=== PATIENT | male | born 1990 | race Caucasian/White ===

== ENCOUNTER 2016-09-26 20:54 | Emergency (ER) | payer BC, OTHER ==
[2016-09-26 21:00] VITALS: BP 142/87; PULSE 75; TEMP 98.2; BMI 27.8
--- NOTE | 2016-09-26 22:10 | PDOC ---
History of Present Illness - History of Present Illness Initial Comments: 09/26/16 22:19 The patient is a 26 year old male with no significant past medical history who presents to the emergency department with complaints of sore throat and cough since Wednesday. Pt also reports minimal dizziness. Pt states that he had pizza today. Pt works in [employer]. Pt denies fever, chills, abdominal pain, nausea, vomiting, diarrhea, chest pain , SOB, headache. (-) sick contact <Mariela Pizarro - Last Filed: 09/26/16 22:19> <Angella Burnett - Last Filed: 09/28/16 01:05> - General Chief Complaint: Sore Throat Stated Complaint: SORE THROAT Time Seen by Provider: 09/26/16 22:09 Past History <Mariela Pizarro - Last Filed: 09/26/16 22:19> - Past Medical History Other medical history: denies - Psycho/Social/Smoking Cessation Hx Anxiety: No Suicidal Ideation: No Smoking History: Never smoked Number of Cigarettes Smoked Daily: 1 Hx Alcohol Use: Yes (SOCIAL) Substance Use Type: None <Angella Burnett - Last Filed: 09/28/16 01:05> - Past Medical History Allergies/Adverse Reactions: Allergies Allergy/AdvReac Type Severity Reaction Status Date / Time No Known Allergies Allergy Verified 09/26/16 21:00 Home Medications: Ambulatory Orders Azithromycin [Zithromax -] 250 mg PO UTDICT #4 tab 09/26/16 Review of Systems - Review of Systems Able to Perform ROS?: Yes Comments:: 09/26/16 22:23 GENERAL/CONSTITUTIONAL: No: fever, chills, weakness, loss of appetite. HEAD, EYES, EARS, NOSE AND THROAT: Yes: sore throat No: change in vision, ear pain, discharge, throat swelling. CARDIOVASCULAR: No: chest pain, palpitations, syncope RESPIRATORY: Yes: cough No: shortness of breath, wheezing, hemoptysis, stridor. GASTROINTESTINAL: No: nausea, vomiting, abdominal cramping, diarrhea, rectal bleeding, constipation. GENITOURINARY: No: dysuria, hematuria, frequency, urgency, flank pain. MUSCULOSKELETAL: No: back pain, neck pain, joint pain, muscle swelling or pain SKIN AND BREASTS: No: lesions, pallor, rash or easy bruising. NEUROLOGIC: Yes : minimal dizziness No: headache, vertigo, paresthesias, weakness ENDOCRINE: No: unexplained weight gain or loss HEMATOLOGIC/LYMPHATIC: No: anemia, easy bleeding, swelling nodes All Other Systems: Reviewed and Negative <Aura Pizarroin - Last Filed: 09/26/16 22:19> *Physical Exam - Vital Signs Last Vital Signs Temp Pulse Resp BP Pulse Ox 98.2 F 75 18 142/87 99 09/26/16 20:56 09/26/16 20:56 09/26/16 20:56 09/26/16 20:56 09/26/16 20:56 - Physical Exam Comments: 09/26/16 22:24 GENERAL: The patient is in no acute distress. HEAD: Normal with no signs of trauma. EYES: PERRLA, EOMI, sclera anicteric, conjunctiva clear. ENT: Ears normal, nares patent, oropharynx clear without exudates. Moist mucous membranes. NECK: Normal range of motion, supple without lymphadenopathy, JVD, or masses. LUNGS: + coarse breath sound at left base. No wheezes, and no crackles. HEART:Regular rate and rhythm, normal S1 and S2 without murmur, rub or gallop. ABDOMEN: Soft, nontender, normoactive bowel sounds. No guarding, no rebound. EXTREMITIES: Normal range of motion, no edema. No clubbing or cyanosis. No erythema, or tenderness. NEUROLOGICAL: Cranial nerves II through XII grossly intact. Normal speech. No focal neurological deficits. MUSCULOSKELETAL: Back non-tender to palpation, no CVA tenderness SKIN: Warm, Dry, normal turgor, no rashes or lesions noted. <DexterioanaMariela - Last Filed: 09/26/16 22:19> - Vital Signs Last Vital Signs Temp Pulse Resp BP Pulse Ox 98.2 F 75 18 142/87 99 09/26/16 20:56 09/26/16 20:56 09/26/16 20:56 09/26/16 20:56 09/26/16 20:56 <Angella Burnett - Last Filed: 09/28/16 01:05> Medical Decision Making - Medical Decision Making 09/28/16 01:03 Pt has a sore throat and he is coughing up green phlegm. strep culture is negative and flu culture is negative. Pt will be treated with zithromax for an atypical pneumonia. CXR is normal, however I am treating patient based on his clinical presentation. <Angella Burnett - Last Filed: 09/28/16 01:05> *DC/Admit/Observation/Transfer - Attestations Scribe Attestion: 09/26/16 22:25 Documentation prepared by Mariela Pizarro, acting as biomedical equipment specialist for Angella Burnett MD. <Mariela Pizarro - Last Filed: 09/26/16 22:19> - Discharge Dispostion Admit: No <Angella Burnett - Last Filed: 09/28/16 01:05> Diagnosis at time of Disposition: Walking pneumonia - Discharge Dispostion Disposition: HOME Condition at time of disposition: Stable - Prescriptions Prescriptions: Azithromycin [Zithromax -] 250 mg PO UTDICT #4 tab - Patient Instructions Printed Discharge Instructions: Atypical Pneumonia
[2016-09-26] MEDS ORDERED: AZITHROMYCIN 250 MG TABLET (FP) PO ONE (22:51)
[2016-09-26] MEDS ORDERED: AZITHROMYCIN 250 MG TABLET (FP) ONE (22:57)
== END 2016-09-26 23:25 | disposition home or self-care (01) ==
LOC: JERFT 20:54 → JER 20:54
DX: J18.8 Other pneumonia, unspecified organism (principal)
CPT/HCPCS: 71020-TC; 87070; 87430; 87804; 99281-25

== ENCOUNTER 2021-06-02 10:53 | Emergency (ER) | payer OTHER, BC ==
[2021-06-02 11:04] VITALS: BP 133/76; PULSE 94; TEMP 98.5; BMI 28.4
[2021-06-02] MEDS ORDERED: CYCLOBENZAPRINE HCL 10 MG TABLET (FP) PO ONE (12:13)
[2021-06-02] MEDS ORDERED: CYCLOBENZAPRINE HCL 10 MG TABLET (FP) ONE (12:15)
[2021-06-02 12:36] LABS: PH,URINE 5.5 (5.0-8.0); URINE APPEARANCE CLEAR; URINE BILIRUBIN NEGATIVE (NEGATIVE); URINE COLOR YELLOW; URINE GLUCOSE (UA) NEGATIVE (NEGATIVE); URINE KETONE NEGATIVE (NEGATIVE); URINE LEUK ESTERASE NEGATIVE (NEGATIVE); URINE NITRITE NEGATIVE (NEGATIVE); URINE PROTEIN NEGATIVE (NEGATIVE)
== END 2021-06-02 15:29 | disposition home or self-care (01) ==
LOC: JERFT 10:53
DX: M79.10 Myalgia, unspecified site (principal); N50.811 Right testicular pain; N50.3 Cyst of epididymis
CPT/HCPCS: 36415; 76856-TC; 76870-TC; 81003; 87086; 87491; 87591; 99285-25